=== PATIENT | male | born 2005 | race Caucasian/White ===

== ENCOUNTER 2025-07-25 21:48 | Emergency (ER) | payer SELFPAY ==
[~2025-07-25] VITALS: Ht 172.7 cm; Wt 74.0 kg
[2025-07-25 21:52] VITALS: TEMP 36.7; O2SAT 100
[2025-07-25 22:57] LABS: BASOPHILS % 0.6 % (0.0-2.0); EOSINOPHILS % 0.8 % (0.0-5.0); HEMATOCRIT. 43.9 % (42.0-52.0); HEMOGLOBIN. 14.9 g/dL (14.0-18.0); LYMPHOCYTES % 18.5 % (20.0-50.0); MEAN PLATELET VOLUME 7.1 fl (7.4-10.4); MONOCYTES % 6.3 % (2.0-8.0); NEUTROPHILS % 73.8 % (40.0-76.0); PLATELET 362 x1000/uL (130-400); RED BLOOD CELL COUNT 4.83 mill/uL (4.7-6.1); RED CELL DISTRIBUTION WIDTH 12.8 % (11.6-14.6)
[2025-07-25 23:10] LABS: CREATININE 0.8 mg/dL (0.6-1.3)
[2025-07-25 23:11] LABS: TROPONIN I HIGH SENSITIVITY < 4 ng/L (3.0-53); UREA NITROGEN BLOOD 9 mg/dL (9-23)
[2025-07-25 23:12] LABS: ASPARTATE AMINOTRANSFERASE 22 IU/L (<34)
[2025-07-25 23:13] LABS: BILIRUBIN DIRECT 0.4 mg/dL (<=3.0); BILIRUBIN TOTAL 1.1 mg/dL (0.1-1.0); PROTEIN TOTAL 7.2 g/dL (6.0-8.3)
[2025-07-25 23:55] VITALS: BP 118/80; PULSE 73; RESP 16; O2SAT 100
[2025-07-26] MEDS ORDERED: KETOROLAC 15MG/ML VIAL IM ONE (01:00)
== END 2025-07-26 01:26 | disposition home or self-care (01) ==
LOC: ER 21:59
DX: R07.9 Chest pain, unspecified (principal); F41.9 Anxiety disorder, unspecified
CPT/HCPCS: 36415; 71045; 80048; 80076; 84484; 85025; 93005; 99285